=== PATIENT | male | born 1940 | race Caucasian/White ===

== ENCOUNTER → 2016-07-13 | Day surgery (SDC) | payer MEDICARE, OTHER ==
[~2016-07-13] MED LIST: ATROVENT I0.2 MG/1 M IH; HCTZ 25MG25 MG PO; LEVOTHYROXINE PO; PREDNISONE 5MG5 MG PO
== END ==
LOC: MSO 06:59
DX: K43.2 Incisional hernia without obstruction or gangrene (principal); J44.9 Chronic obstructive pulmonary disease, unspecified; I50.9 Heart failure, unspecified; K21.9 Gastro-esophageal reflux disease without esophagitis; Z87.891 Personal history of nicotine dependence; Z95.2 Presence of prosthetic heart valve
CPT/HCPCS: 00830; A4649; C1781; J0690; J3010; J7120

== ENCOUNTER 2017-09-29 20:46 | Emergency (ER) | payer MEDICARE, OTHER ==
[2017-09-29 21:12] LABS: HEMATOCRIT 33.4 % (42.0-52.0); HEMOGLOBIN 9.6 g/dL (13.5-18.0); MEAN CELL VOLUME 94 fl (78-100); MEAN CORPUSCULAR HEMOGLOBIN 27 pg (27-31); MEAN PLATELET VOLUME 9.7 fl (7.4-10.4); PLATELET COUNT 238 K/mm3 (130-400); RED BLOOD COUNT 3.55 M/mm3 (4.20-5.60); WHITE BLOOD COUNT 7.8 K/mm3 (4.8-10.8)
[2017-09-29 21:25] LABS: MEAN CORPUSCULAR HGB CONC 29 g/dL (33-37)
[2017-09-29 21:29] LABS: ALBUMIN 3.2 g/dL (3.5-5.0); BUN/CREATININE RATIO 26.7 (6.0-26.0); CALCIUM 8.7 mg/dL (8.4-10.2); POTASSIUM 3.8 mmol/L (3.6-5.0); TOTAL BILIRUBIN 0.6 mg/dL (0.2-1.3); TOTAL PROTEIN 6.5 g/dL (6.3-8.2)
[2017-09-29 21:31] LABS: PROTHROMBIN TIME 10.3 SECONDS (9.0-12.0)
[2017-09-29 21:35] LABS: CKMB ISOENZYME 3.2 ng/mL (0.6-3.5)
[2017-09-29 21:42] LABS: TROPONIN-I < 0.03 ng/mL (0.00-0.06)
[2017-09-29 22:18] LABS: LYMPHOCYTE 5 % (20-51); MONOCYTE 8 % (3-10); NEUTROPHILS 84 % (42-75)
[2017-09-29 22:19] LABS: URINE APPEARANCE CLEAR; URINE BILIRUBIN NEGATIVE (NEGATIVE); URINE BLOOD NEGATIVE (NEGATIVE); URINE COLOR YELLOW; URINE GLUCOSE NEGATIVE (NEGATIVE); URINE KETONE NEGATIVE (NEGATIVE); URINE LEUKOCYTE ESTERASE NEGATIVE (NEGATIVE); URINE NITRATE NEGATIVE (NEGATIVE); URINE PROTEIN(semi-quant) NEGATIVE (NEGATIVE); URINE UROBILINOGEN 1 mg/dL (NORMAL); URINE WBC 0-1 /hpf (0-3)
[2017-09-29 22:44] VITALS: BP 110/64
== END 2017-09-29 22:44 | disposition other institution (70) ==
LOC: ED 20:46
PROVIDERS: Nurse Practitioner Primary Care
DX: J44.1 Chronic obstructive pulmonary disease with (acute) exacerbation (principal); R09.02 Hypoxemia; R41.0 Disorientation, unspecified; R91.8 Other nonspecific abnormal finding of lung field; R60.0 Localized edema; R10.817 Generalized abdominal tenderness; F41.9 Anxiety disorder, unspecified; Z88.6 Allergy status to analgesic agent; Z91.013 Allergy to seafood; Z91.14 Patient's other noncompliance with medication regimen
CPT/HCPCS: Q9967